=== PATIENT | female | born 1930 | race Native Hawaiian/Other Pacific Islander ===

== ENCOUNTER 2016-07-10 06:24 | Day surgery (SDC) | payer OTHER, BC ==
[2016-07-10 07:55] LABS: POTASSIUM 3.6 mmol/L (3.6-5.2)
[2016-07-10 08:01] LABS: PLATELET COUNT 199 K/uL (152-353)
== END 2016-07-10 10:02 | disposition home or self-care (01) ==
LOC: OR 06:24
PROVIDERS: Surgery
PROC: 0DJD8ZZ Inspection of Lower Intestinal Tract, Via Natural or Artificial Opening Endoscopic (ICD-10-PCS; principal; 2016-07-10)
DX: K57.30 Diverticulosis of large intestine without perforation or abscess without bleeding (principal); K59.09 Other constipation
CPT/HCPCS: 36415; 80048; 85027; 93005; J2704